=== PATIENT | female | born 1985 | race Caucasian/White ===

== ENCOUNTER 2018-07-11 10:26 | Emergency (ER) | payer BC, OTHER ==
[~2018-07-11] VITALS: Ht 160 cm; Wt 68.0 kg
[2018-07-11] MEDS ORDERED: BUPR8TAB4 SL (11:05)
[2018-07-11] MEDS ORDERED: DIAZ10TA4 PO (11:06)
[2018-07-11] MEDS ORDERED: LEVE500T20 PO (11:06)
[2018-07-11] MEDS ORDERED: PREG150C PO (11:06)
[2018-07-11] MEDS ORDERED: BUSP30TA2 PO (11:06)
--- NOTE | 2018-07-11 11:07 | NUR ---
PT IS IN ROOM #2B. DR NASH EVALUATED THE PT.
[2018-07-11] MEDS ORDERED: LORAZEPAM 1 MG TABLET ONE (11:14)
[2018-07-11] MEDS ORDERED: DIAZEPAM 5 MG TABLET ONE (11:15)
[2018-07-11] MEDS ORDERED: LORAZEPAM 0.5 MG TABLET PO ONE (11:15)
[2018-07-11] MEDS ORDERED: DIAZEPAM 2 MG TABLET PO ONE (11:15)
--- NOTE | 2018-07-11 11:47 | NUR ---
PT WAS D/C'd TO HOME. D/C INSTRUCTIONS GIVEN TO THE PT.
[2018-07-11 11:48] VITALS: BP 135/81
== END 2018-07-11 11:49 | disposition home or self-care (01) ==
LOC: ER 10:26
DX: F41.9 Anxiety disorder, unspecified (principal); F32.9 Major depressive disorder, single episode, unspecified; Z79.899 Other long term (current) drug therapy
CPT/HCPCS: A4663